=== PATIENT | female | born 1980 | race Caucasian/White ===

== ENCOUNTER 2016-07-15 15:39 | Outpatient (CLI) | payer BC ==
--- NOTE | 2016-07-15 16:53 | Non Stress Test Report ---
Non Stress Test Datetime Report Generated by CPN: 07/15/2016 16:53 DEMOGRAPHIC EGA NST: 35.0 INDICATION Indication for Study: Ordered by Provider MONITORING Monitor Explained: Monitor Explained; Test Explained; Patient Verbalized Understanding Time on Monitor: 07/15/2016 16:05 Time off Monitor: 07/15/2016 16:50 NST Duration: 45 NST INTERVENTIONS NST Interventions: PO Hydration; Other NST Interventions Other: popsicle Physician Notified NST: Dr. Dioni BABY A: [id number] BABY A Movement : Present Contraction Frequency : Ocasional FHR Baseline : 130 Accelerations : 15X15 Decelerations : None Variability : Moderate 6-25bpm NST Review: Meets Criteria for Reactive NST NST Review and Verified By : Markel Baikentrell RN NST Results: Reactive NST COMMENTS NST Comments: Provider reviewed strip. NST REPORT Report Trigger: Send Report
== END 2016-07-15 17:00 | disposition home or self-care (01) ==
LOC: LC 15:39
PROVIDERS: ATTEND Obstetrics & Gynecology
PROC: 4A1HXCZ Monitoring of Products of Conception, Cardiac Rate, External Approach (ICD-10-PCS; principal; 2016-07-15)
DX: O36.8130 Decreased fetal movements, third trimester, not applicable or unspecified (principal); Z3A.35 35 weeks gestation of pregnancy
CPT/HCPCS: 59025

== ENCOUNTER 2016-07-17 20:06 | Outpatient (CLI) | payer BC ==
[2016-07-17] MEDS ORDERED: RINGERS SOLUTION,LACTATED 1,000 ML IV PRN (20:58)
[2016-07-17 21:11] LABS: APPEARANCE,URINE SLIGHTLY-CLOUDY; BILIRUBIN,URINE NEGATIVE (NEGATIVE); GLUCOSE, URINE NEGATIVE (NEGATIVE); KETONES,URINE NEGATIVE (NEGATIVE); LEUKOCYTE ESTERASE,URINE NEGATIVE (NEGATIVE); NITRITE,URINE NEGATIVE (NEGATIVE); PROTEIN,URINE NEGATIVE (NEGATIVE); URINE SPECIFIC GRAVITY 1.011; UROBILINOGEN,URINE NEGATIVE mg/dL (<2.0)
[2016-07-17 21:24] LABS: URINE BARBITURATES SCREEN NEGATIVE; URINE METHADONE SCREEN NEGATIVE; URINE OPIATES LOW NEGATIVE; URINE PHENCYCLIDINE SCREEN NEGATIVE
[2016-07-17] MEDS ORDERED: HYDROXYZINE PAMOATE 50 MG CAPSULE PO ONE (23:10)
[2016-07-17] MEDS ORDERED: HYDROXYZINE PAMOATE 50 MG CAPSULE ONE (23:14)
--- NOTE | 2016-07-18 00:38 | Non Stress Test Report ---
Non Stress Test Datetime Report Generated by CPN: 07/18/2016 00:38 DEMOGRAPHIC Test Number: 2 EGA NST: 35.2 INDICATION Indication for Study: Ordered by Provider VITAL SIGNS Temperature - NST: 98.5 Pulse - NST: 93 RESP - NST: 15 NBPSYS NST: 151 NBPDIA NST: 66 MONITORING Monitor Explained: Monitor Explained; Test Explained; Patient Verbalized Understanding Time on Monitor: 07/17/2016 20:29 Time off Monitor: 07/18/2016 00:14 NST Duration: 225 NST INTERVENTIONS NST Interventions: PO Hydration; IV Fluids Physician Notified NST: Dr Hayward BABY A: [id number] BABY A Movement : Present Contraction Frequency : 2-3.5 FHR Baseline : 125 Accelerations : 15X15 Decelerations : None Variability : Moderate 6-25bpm NST Review: Meets Criteria for Reactive NST NST Review and Verified By : Elda Sainz RN NST Results: Reactive NST REPORT Report Trigger: Send Report
== END 2016-07-18 00:28 | disposition home or self-care (01) ==
LOC: LC 20:06
PROVIDERS: ATTEND Obstetrics & Gynecology
PROC: 4A1HXCZ Monitoring of Products of Conception, Cardiac Rate, External Approach (ICD-10-PCS; principal; 2016-07-17)
DX: O47.03 False labor before 37 completed weeks of gestation, third trimester (principal); Z3A.35 35 weeks gestation of pregnancy
CPT/HCPCS: 59025; 80307; 81001

== ENCOUNTER 2016-07-22 23:15 | Outpatient (CLI) | payer BC ==
[2016-07-23 00:02] LABS: AMORPHOUS SEDIMENT,URINE TRACE /HPF; APPEARANCE,URINE SLIGHTLY-CLOUDY; BILIRUBIN,URINE NEGATIVE (NEGATIVE); GLUCOSE, URINE >=500 mg/dL (NEGATIVE); KETONES,URINE NEGATIVE (NEGATIVE); LEUKOCYTE ESTERASE,URINE TRACE (NEGATIVE); NITRITE,URINE NEGATIVE (NEGATIVE); PROTEIN,URINE NEGATIVE (NEGATIVE); URINE SPECIFIC GRAVITY 1.018; UROBILINOGEN,URINE NEGATIVE mg/dL (<2.0)
[2016-07-23 00:13] LABS: URINE BARBITURATES SCREEN NEGATIVE; URINE METHADONE SCREEN NEGATIVE; URINE OPIATES LOW NEGATIVE; URINE PHENCYCLIDINE SCREEN NEGATIVE
--- NOTE | 2016-07-23 00:33 | Non Stress Test Report ---
Non Stress Test Datetime Report Generated by CPN: 07/23/2016 00:32 DEMOGRAPHIC EGA NST: 36.0 INDICATION Indication for Study: Decreased Movement MONITORING Monitor Explained: Monitor Explained; Test Explained; Patient Verbalized Understanding Time on Monitor: 07/22/2016 23:34 Time off Monitor: 07/23/2016 00:10 NST Duration: 36 NST INTERVENTIONS NST Interventions: PO Hydration; Reposition Patient Physician Notified NST: Dr. Soler BABY A: [id number] BABY A Movement : Present Contraction Frequency : None FHR Baseline : 120 Accelerations : 15X15 Decelerations : None Variability : Moderate 6-25bpm NST Review: Meets Criteria for Reactive NST NST Review and Verified By : PHILIPP Muniz Results: Reactive NST REPORT Report Trigger: Send Report
== END 2016-07-23 00:16 | disposition home or self-care (01) ==
LOC: LC 23:15
PROVIDERS: ATTEND Obstetrics & Gynecology
PROC: 4A1HXCZ Monitoring of Products of Conception, Cardiac Rate, External Approach (ICD-10-PCS; principal; 2016-07-22)
DX: O36.8130 Decreased fetal movements, third trimester, not applicable or unspecified (principal); Z3A.36 36 weeks gestation of pregnancy
CPT/HCPCS: 59025; 80307; 81001

== ENCOUNTER 2016-07-24 13:40 | Outpatient (CLI) | payer BC ==
[2016-07-24 14:24] LABS: AMORPHOUS SEDIMENT,URINE TRACE /HPF; APPEARANCE,URINE CLOUDY; BILIRUBIN,URINE NEGATIVE (NEGATIVE); GLUCOSE, URINE NEGATIVE (NEGATIVE); KETONES,URINE NEGATIVE (NEGATIVE); LEUKOCYTE ESTERASE,URINE MODERATE (NEGATIVE); NITRITE,URINE NEGATIVE (NEGATIVE); PROTEIN,URINE NEGATIVE (NEGATIVE); URINE SPECIFIC GRAVITY 1.016; UROBILINOGEN,URINE NEGATIVE mg/dL (<2.0)
[2016-07-24 14:42] LABS: URINE BARBITURATES SCREEN NEGATIVE; URINE METHADONE SCREEN NEGATIVE; URINE OPIATES LOW NEGATIVE; URINE PHENCYCLIDINE SCREEN NEGATIVE
== END 2016-07-24 14:56 | disposition home or self-care (01) ==
LOC: LC 13:40
PROVIDERS: ATTEND Obstetrics & Gynecology
PROC: 4A1HXCZ Monitoring of Products of Conception, Cardiac Rate, External Approach (ICD-10-PCS; principal; 2016-07-24)
DX: O40.3XX0 Polyhydramnios, third trimester, not applicable or unspecified (principal); O76 Abnormality in fetal heart rate and rhythm complicating labor and delivery; Z3A.36 36 weeks gestation of pregnancy
CPT/HCPCS: 59025; 80307; 81001

== ENCOUNTER 2016-08-01 21:08 | Emergency (ER) | payer BC ==
[2016-08-01] MEDS ORDERED: ASPIRIN 81 MG TABLET, CHEWABLE PO ONE (21:43)
[2016-08-01 22:02] LABS: ABSOLUTE BASOPHILS # (AUTO) 0.1 10^3/uL (0.0-0.2); ABSOLUTE EOSINOPHILS # (AUTO) 0.2 10^3/uL (0.0-0.6); ABSOLUTE LYMPHOCYTES (AUTO) 1.5 10^3/uL (0.5-4.7); ABSOLUTE MONOCYTES (AUTO) 1.2 10^3/uL (0.1-1.4); ABSOLUTE NEUT (AUTO) 10.5 10^3/uL (1.7-8.2); BASOPHILS % (AUTO) 1.1 % (0-2); EOSINOPHILS % (AUTO) 1.7 % (0-6); HEMATOCRIT 39.8 % (36.0-47.0); HEMOGLOBIN 13.5 g/dL (12.0-15.5); HGB HCT DIFFERENCE 0.7; LYMPHOCYTES % (AUTO) 11.1 % (13-45); MEAN CORPUSCULAR VOLUME 94 fl (80-97); MONOCYTES % (AUTO) 8.8 % (3-13); RED BLOOD COUNT 4.22 10^6/uL (3.72-5.28); RED CELL DISTRIBUTION WIDTH 13.6 % (11.5-14.0); SEGMENTED NEUTROPHILS % (AUTO) 77.3 % (42-78); WHITE BLOOD COUNT 13.5 10^3/uL (4.0-10.5)
[2016-08-01 22:16] LABS: ALANINE AMINOTRANSFERASE 37 U/L (9-52); ALBUMIN 3.1 g/dL (3.5-5.0); ALKALINE PHOSPHATASE 145 U/L (38-126); ANION GAP 7 (5-19); ASPARTATE AMINO TRANSFERASE 32 U/L (14-36); BILIRUBIN,DIRECT 0.2 mg/dL (0.0-0.4); BILIRUBIN,TOTAL 0.5 mg/dL (0.2-1.3); BLOOD UREA NITROGEN 13 mg/dL (7-20); CALCIUM 8.9 mg/dL (8.4-10.2); CARBON DIOXIDE 23 mmol/L (22-30); CHLORIDE 107 mmol/L (98-107); CREATINE KINASE 27 U/L (30-135); GLUCOSE 95 mg/dL (75-110); POTASSIUM 3.9 mmol/L (3.6-5.0); SODIUM 136.5 mmol/L (137-145)
[2016-08-01 22:27] LABS: CREATINE KINASE MB 0.46 ng/mL (<4.55)
[2016-08-01 22:28] LABS: TROPONIN I < 0.012 ng/mL
[2016-08-02 01:16] LABS: APPEARANCE,URINE CLOUDY; BILIRUBIN,URINE NEGATIVE (NEGATIVE); GLUCOSE, URINE NEGATIVE (NEGATIVE); KETONES,URINE NEGATIVE (NEGATIVE); LEUKOCYTE ESTERASE,URINE NEGATIVE (NEGATIVE); NITRITE,URINE NEGATIVE (NEGATIVE); PROTEIN,URINE NEGATIVE (NEGATIVE); UROBILINOGEN,URINE NEGATIVE mg/dL (<2.0)
--- NOTE | 2016-08-02 03:31 | ER Document Report ---
ED General - General Chief Complaint: Dizziness Stated Complaint: CHEST PAIN Time Seen by Provider: 08/02/16 00:09 TRAVEL OUTSIDE OF THE [place] IN LAST 30 DAYS: No - HPI Patient complains to provider of: Dizziness chest pain Notes: Patient is coming in for evaluation of dizziness lightheadedness and chest pain. States symptoms started around 8:00 this evening states the pain is described as burning. Patient states history of acid reflux states she took her Zantac earlier this morning has not taken any recently. Patient denies any nausea vomiting fevers or chills. Upon evaluation patient is 37 weeks no complication during . Patient states currently pain-free - Related Data Allergies/Adverse Reactions: No Known Allergies Allergy (Verified 07/24/16 14:05) Past Medical History - Social History Smoking Status: Never Smoker Frequency of alcohol use: None Drug Abuse: None Family History: Reviewed & Not Pertinent Patient has suicidal ideation: No Patient has homicidal ideation: No Renal/ Medical History: Denies: Hx Peritoneal Dialysis Surgical Hx: Negative - Immunizations Hx Diphtheria, Pertussis, Tetanus Vaccination: Yes Review of Systems - Review of Systems Constitutional: No symptoms reported EENT: No symptoms reported Cardiovascular: Chest pain, Dizziness Respiratory: No symptoms reported Gastrointestinal: No symptoms reported Genitourinary: No symptoms reported Female Genitourinary: No symptoms reported Musculoskeletal: No symptoms reported Skin: No symptoms reported Hematologic/Lymphatic: No symptoms reported Neurological/Psychological: No symptoms reported -: Yes All other systems reviewed and negative Physical Exam - Vital signs Vitals: Temp Pulse Resp BP Pulse Ox 97.7 F 86 16 128/74 H 96 08/01/16 21:27 08/01/16 21:27 08/01/16 21:27 08/01/16 21:27 08/01/16 21:27 Interpretation: Normal - General General appearance: Appears well, Alert - HEENT Head: Normocephalic, Atraumatic Eyes: Normal Pupils: PERRL - Respiratory Respiratory status: No respiratory distress Chest status: Nontender Breath sounds: Normal Chest palpation: Normal - Cardiovascular Rhythm: Regular Heart sounds: Normal auscultation Murmur: No - Abdominal Inspection: Gravid female Distension: No distension Bowel sounds: Normal Tenderness: Nontender Organomegaly: No organomegaly - Back Back: Normal, Nontender - Extremities General upper extremity: Normal inspection, Nontender, Normal color, Normal ROM , Normal temperature General lower extremity: Normal inspection, Nontender, Normal color, Normal ROM , Normal temperature, Normal weight bearing. No: Carlo's sign - Neurological Neuro grossly intact: Yes Cognition: Normal Orientation: AAOx4 [place] Coma Scale Eye Opening: Spontaneous [place] Coma Scale Verbal: Oriented [place] Coma Scale Motor: Obeys Commands Cara Coma Scale Total: 15 Speech: Normal Motor strength normal: LUE, RUE, LLE, RLE Sensory: Normal - Psychological Associated symptoms: Normal affect, Normal mood - Skin Skin Temperature: Warm Skin Moisture: Dry Skin Color: Normal Course - Re-evaluation Re-evalutation: 08/02/16 04:21 Patient is coming in for evaluation of lightheadedness dizziness chest pain described as burning. More likely is related to the patient's acid reflux of patient's troponins EKGs 2 were both negative. heart tones are within normal limits. Patient has been chest pain-free since my evaluation. Patient looks to be in no acute distress. Patient was encouraged to continue to drink plenty of fluids patient will be discharged home 08/02/16 04:23 - Vital Signs Vital signs: Temp Pulse Resp BP Pulse Ox 97.5 F 94 16 110/92 H 100 08/02/16 03:01 08/02/16 01:40 08/02/16 03:01 08/02/16 03:31 08/02/16 03:31 - Laboratory Result Diagrams: 08/01/16 21:45 08/01/16 21:45 Laboratory results interpreted by me: 08/01/16 08/01/16 21:45 21:45 WBC 13.5 H Lymphocytes % 11.1 L Absolute Neutrophils 10.5 H Sodium 136.5 L Alkaline Phosphatase 145 H Creatine Kinase 27 L Total Protein 6.0 L Albumin 3.1 L Discharge - Discharge Clinical Impression: Dizziness, Chest pain unclear etiology Qualifiers: Weeks of gestation: 37 weeks Qualified Code(s): Z3A.37 - 37 weeks gestation of Condition: Good Disposition: HOME, SELF-CARE Instructions: Dizziness ([facility]), ([facility]), Chest Pain of Unclear Cause ( [facility]) Additional Instructions: Your lab work EKG does not show any significant pathology for your chest pain. More likely this may be related to your as reflux. I would recommend to continue Zantac. Your dizziness is more likely related to possible dehydration. Would recommend to continue to drink plenty of water throughout the rest of her . Please follow-up with your primary care physician Referrals: EFRAIN EASTON MD [Primary Care Provider] - Follow up in 3-5 days
[2016-08-02 03:42] VITALS: BP 110/92
--- NOTE | 2016-08-02 10:02 | EKG REPORT ---
SEVERITY:- BORDERLINE ECG - SINUS RHYTHM LOW VOLTAGE THROUGHOUT : Confirmed by: Montana Quesada 02-Aug-2016 10:01:27
--- NOTE | 2016-08-02 10:02 | EKG REPORT ---
SEVERITY:- BORDERLINE ECG - SINUS RHYTHM LOW VOLTAGE THROUGHOUT : Confirmed by: Montana Quesada 02-Aug-2016 10:01:41
== END 2016-08-02 03:53 | disposition home or self-care (01) ==
LOC: ER 21:08
DX: O26.893 Other specified pregnancy related conditions, third trimester (principal); R42 Dizziness and giddiness; R07.9 Chest pain, unspecified; O99.613 Diseases of the digestive system complicating pregnancy, third trimester; K21.9 Gastro-esophageal reflux disease without esophagitis; Z79.899 Other long term (current) drug therapy; Z3A.37 37 weeks gestation of pregnancy
CPT/HCPCS: 36415; 80053; 81001; 82550; 82553; 84484; 85025; 93005; 93010; 99284

== ENCOUNTER 2016-08-02 20:26 | Inpatient (IN) | payer BC ==
[2016-08-02 21:16] LABS: AMNISURE (ROM) POSITIVE (NEGATIVE); APPEARANCE,URINE SLIGHTLY-CLOUDY; BILIRUBIN,URINE NEGATIVE (NEGATIVE); GLUCOSE, URINE NEGATIVE (NEGATIVE); KETONES,URINE NEGATIVE (NEGATIVE); LEUKOCYTE ESTERASE,URINE NEGATIVE (NEGATIVE); NITRITE,URINE NEGATIVE (NEGATIVE); PROTEIN,URINE NEGATIVE (NEGATIVE); URINE SPECIFIC GRAVITY 1.011; UROBILINOGEN,URINE NEGATIVE mg/dL (<2.0)
[2016-08-02 21:31] LABS: URINE BARBITURATES SCREEN NEGATIVE; URINE METHADONE SCREEN NEGATIVE; URINE OPIATES LOW NEGATIVE; URINE PHENCYCLIDINE SCREEN NEGATIVE
[2016-08-02] MEDS: RINGERS SOLUTION,LACTATED 1,000 ML IV PRN (21:54)
[2016-08-02] MEDS ORDERED: MISOPROSTOL 0.1 MG TABLET PO ONE (21:58)
[2016-08-02 22:00] LABS: ABSOLUTE BASOPHILS # (AUTO) 0.1 10^3/uL (0.0-0.2); ABSOLUTE EOSINOPHILS # (AUTO) 0.3 10^3/uL (0.0-0.6); ABSOLUTE LYMPHOCYTES (AUTO) 1.7 10^3/uL (0.5-4.7); ABSOLUTE MONOCYTES (AUTO) 1.2 10^3/uL (0.1-1.4); ABSOLUTE NEUT (AUTO) 10.4 10^3/uL (1.7-8.2); BASOPHILS % (AUTO) 0.4 % (0-2); EOSINOPHILS % (AUTO) 1.9 % (0-6); HEMOGLOBIN 12.7 g/dL (12.0-15.5); HGB HCT DIFFERENCE 1.1; LYMPHOCYTES % (AUTO) 12.2 % (13-45); MEAN CORPUSCULAR HEMOGLOBIN 32.3 pg (27.0-33.4); MEAN CORPUSCULAR HGB CONC 34.5 g/dL (32.0-36.0); MEAN CORPUSCULAR VOLUME 94 fl (80-97); MONOCYTES % (AUTO) 8.8 % (3-13); RED BLOOD COUNT 3.94 10^6/uL (3.72-5.28); RED CELL DISTRIBUTION WIDTH 13.8 % (11.5-14.0); SEGMENTED NEUTROPHILS % (AUTO) 76.7 % (42-78); WHITE BLOOD COUNT 13.6 10^3/uL (4.0-10.5)
[2016-08-02] MEDS ORDERED: MISOPROSTOL 0.1 MG TABLET ONE (22:00)
[2016-08-02] MEDS ORDERED: MISOPROSTOL 0.2 MG TABLET PV ONE (22:01)
[2016-08-03] MEDS ORDERED: ZOLPIDEM TARTRATE 5 MG TABLET PO PRN ×2 (00:07→14:15)
[2016-08-03] MEDS ORDERED: ZOLPIDEM TARTRATE 5 MG TABLET ONE (01:03)
[2016-08-03] MEDS ORDERED: OXYTOCIN/NORMAL SALINE 1,000 ML IV PRN ×2 (04:21→14:15)
[2016-08-03] MEDS ORDERED: OXYTOCIN/NORMAL SALINE 0 UNIT/0 ML RTUINJ ONE (04:27)
[2016-08-03] MEDS: RINGERS SOLUTION,LACTATED 1,000 ML IV PRN (04:31)
[2016-08-03] MEDS ORDERED: MISOPROSTOL 0.2 MG TABLET ONE ×2 (08:39→13:40)
[2016-08-03] MEDS ORDERED: FENTANYL/BUPIVACAINE/NS/PF 200 MCG/100 ML RTUINJ EPI ONE (08:39)
[2016-08-03] MEDS ORDERED: LIDOCAINE 1% INJ-PF (10 MG/ML) 30 ML SDV ONE (08:39)
[2016-08-03] MEDS ORDERED: EPHEDRINE SULFATE INJ 50 MG/1 ML AMPULE ONE (08:39)
[2016-08-03] MEDS ORDERED: BUPIVACAINE HCL 0.25 % INJ/PF (2.5 MG/1 ML) 30 ML VIAL ONE (08:40)
[2016-08-03] MEDS ORDERED: OXYTOCIN/NORMAL SALINE 20 UNIT/1,000 ML RTUINJ ONE (08:40)
[2016-08-03] MEDS ORDERED: MEASLES,MUMPS&RUBELLA VACC/PF 0.5 ML VIAL SUBCUT PRN (14:15)
[2016-08-03] MEDS ORDERED: DIBUCAINE 1% OINTMENT 28 GM TP PRN (14:15)
[2016-08-03] MEDS ORDERED: DIPH/PERTUSS(ACELL)/TETANUS VAC/PF 0.5 ML SYR (>=10YO) IM PRN (14:15)
[2016-08-03] MEDS ORDERED: BENZOCAINE/MENTHOL AEROSOL SPRAY 56 ML TOP PRN (14:15)
[2016-08-03] MEDS ORDERED: ACETAMINOPHEN WITH CODEINE #3 TABLET PO PRN (14:15)
[2016-08-03] MEDS ORDERED: MISOPROSTOL 0.2 MG TABLET PR ONE (14:35)
--- NOTE | 2016-08-03 15:34 | Delivery Summary ---
Del Sum A-C Datetime Report Generated by CPN: 08/03/2016 15:33 DELIVERY PERSONNEL DELIVERY PERSONNEL: [phone] Delivery Doctor:: Jaclyn Soler MD Nurse Industrial Truck Mechanic Certified:: Dixie Yan CNM Anesthesiologist:: Jimenez Correa MD Labor and Delivery Nurse:: Naya Thomas RNmotel operator Nurse:: Cheli Quinones RN Nursery Nurse:: Suzette Limon RN Student Observers:: Margarita Schroeder analysis intern Project Management It Specialist/PATIENT REPRESENTATIVE: Vanita Garcia CNA II Project Management It Specialist/PATIENT REPRESENTATIVE: Ioana Blanchard, DRIVER LICENSE REVIEWING OFFICER MATERNAL INFORMATION Delivery Anesthesia: Epidural Medications After Delivery: Pitocin Bolus-Please Comment; Pitocin Drip 20 Units/1000ml NSS Maternal Complications: Premature Rupture of Membranes Provider Comments: Vacuum assisted vaginal delivery, 2 pulls with pressure in the green, no pop offs by Dr. Soler. Head, shoulders, and body delivered without difficulty. Cord clamped X2, cut free, by pts . Spontaneous delivery of placenta via perla mechanism. Appears intact, 3 VC. Lacerations repaired as above, good hemostasis with external fundal massage and IV pitocin. Mother and infant in stable condition, routine pp care. LABOR SUMMARY EDC: 08/19/2016 00:00 No. Babies in Womb: 1 Attempted: No Labor Anesthesia: Epidural LABOR INFORMATION Reason for Induction: Not Applicable Onset of Labor: 08/03/2016 01:58 Complete Dilatation: 08/03/2016 11:34 Cervical Ripening Agents: Cytotec @ Oxytocin: Augmentation Group B Beta Strep: negative Antibiotics # of Doses: 0 Steroids Given: None Reason Steroids Not Administered: Not Applicable MEMBRANES Membranes Rupture Method: Spontaneous Rupture of Membranes: 08/02/2016 20:00 Length of Rupture (hr): 17.32 Amniotic Fluid Color: Clear Amniotic Fluid Amount: Moderate Amniotic Fluid Odor: None STAGES OF LABOR Stage 1 hr: 9 Stage 1 min: 36 Stage 2 hr: 1 Stage 2 min: 45 Stage 3 hr: 0 Stage 3 min: 6 Total Time in Labor hr: 11 Total Time in Labor min: 27 VAGINAL DELIVERY Episiotomy: None Laceration Extension: First Degree Laceration Type: Vaginal Other Laceration: 2nd degree right vaginal sidewall, right labial, vaginal Laceration Repair: Yes Laceration Repair Note: repaired with 2, 2-0 chromic using epidural for anesthesia Sponge Count Correct: Yes; Vaginal Sweep Performed Sharps Count Correct: Yes CSECTION DELIVERY Primary Indication: N/A Secondary Indication: N/A CSection Incidence: N/A Labor: N/A Elective: N/A CSection Incision: N/A BABY A INFORMATION Delivery Date/Time: 08/03/2016 13:19 Method of Delivery: Vaginal Born in Route : No : N/A Forceps: N/A Vacuum Extraction: Successful Shoulder Dystocia : No ASSISTED DELIVERY BABY A Indication for Assisted Delivery: poor maternal pushing effort Catheter Prior to Procedure: No Vacuum Number of Pulls: 2 Vacuum Number of PopOffs: 0 Vacuum Maximum Pressure Obtained: 75 Reduce Pressure btwn Ctx: Yes Vacuum Rad Technologist: [employer] palm pump kiwi Total Time Vacuum Applied: 3 minutes PRESENTATION/POSITION BABY A Presentation: Cephalic Cephalic Presentation: Vertex Vertex Position: Left Occipital Anterior Breech Presentation: N/A PLACENTA INFORMATION BABY A Placenta Delivery Time : 08/03/2016 13:25 Placenta Method of Delivery: Expressed Placenta Status: Delivered SCORES BABY A Heart Rate 1 min: >100 bpm Resp Effort 1 min: Good Cry Reflex Irritability 1 min: Cough or Sneeze or Pulls Away Muscle Tone 1 min: Active Motion Color 1 min: Blue/Pale Resuscitation Effort 1 min: Tactile Stimulation SCORE 1 MIN: 8 Heart Rate 5 min: >100 bpm Resp Effort 5 min: Good Cry Reflex Irritability 5 min: Cough or Sneeze or Pulls Away Muscle Tone 5 min: Active Motion Color 5 min: Blue/Pale Resuscitation Effort 5 min: N/A SCORE 5 MIN: 8 Resuscitation Effort 10 min: N/A INFORMATION BABY A Gestational Age at Delivery: 37.5 Gestational Status: Early Term- 37- 38.6 Weeks Infant Outcome : Liveborn Infant Condition : Stable Sex: Male IDENTIFICATION BABY A Infant Verification Date/Time: 08/03/2016 13:50 ID Band Number: [id number] Mother's Name Verified: Yes RN Verifying : Krishan Kline RN/ ATu Garcia WEIGHT/LENGTH BABY A Infant Birthweight (gm): 3025 Infant Weight (lb): 6 Weight (oz): 11 Length (in): 19.00 Infant Length (cm): 48.26 CORD INFORMATION BABY A No. Cord Vessels: 3 Nuchal Cord : N/A Cord Blood Taken: Yes-For Eval (Mom's Blood Type - or O+) Infant Suction: Mouth; Nose ASSESSMENT BABY A Infant Complications: Multiple Variable Decels Physical Findings at Delivery: Caput Succedaneum; Bruising Physical Findings- Other: bruising on upper back Infant Respirations: Appears Normal Skin to Skin: Yes Skin to Skin Time (min): 32 minutes Dinkey Motor Operator/ALS Called : No Transferred To: Remains with Mother BABY B INFORMATION : N/A SIGNATURES Assignment: Jaclyn Soler MD Signature: with User ID: Angelina : with User ID: [email or web address]
--- NOTE | 2016-08-03 15:54 | Admission Physical ---
Datetime Report Generated by CPN: 08/03/2016 15:54 CURRENT ADMISSION Chief Complaint: Suspected Ruptured Membranes Indication for Induction: PROM Admit Plan: Admit to Unit; Initiate Labor Induction Protocol ALLERGIES Medication Allergies: No Medication Allergies: No Known Allergies (08/02/2016) Medication Allergies: No Known Allergies (07/24/2016) Medication Allergies: No Known Allergies (07/17/2016) Medication Allergies: None Latex: No Latex Allergies Food Allergies: None Environmental Allergies: None OBSTETRICAL HISTORY EDC: 08/19/2016 00:00 : 1 Para: 0 Term: 0 : 0 SAB: 0 IAB: 0 Ectopic: 0 Livin Cesareans: 0 VBACs: 0 Multiple Births: 0 Gestational Diabetes: No Rh Sensitization: No Incompetent Cervix: No RAHEL: No Infertility: No ART Treatment: No Uterine Anomaly: No IUGR: No Hx Previous C/S: No Macrosomia: No Hx Loss/Stillborn: No PIH: No Hx : No Placenta Previa/Abruption: No Depression/PP Depression: No PTL/PROM: No Post Hemorrhage: No Current Procedures: Ultrasound; NST Obstetrical History Comments: G1 - current SEE RECORDS Alcohol: No Marijuana : No Cocaine: No Other Illicit Drugs: No Cigarettes: Never Smoker. [id number] MEDICAL HISTORY Diabetes: No Blood Transfusion: No Pulmonary Disease (Asthma, TB): No Breast Disease: No Hypertension: No Customer Specialist Surgery: No Heart Disease: No Hosp/Surgery: No Autoimmune Disorder: No Anesthetic Complications: No Kidney Disease: No Abnormal Pap Smear: No Neuro/Epilepsy: No Psychiatric Disorders: No Other Medical Diseases: Yes Hepatitis/Liver Disease: No Significant Family History: No Varicosities/Phlebitis: No Trauma/Violence : No Thyroid Dysfunction: No Medical History Comments: GERD INFECTIOUS HISTORY Gonorrhea: No Genital Herpes: No Chlamydia: No Tuberculosis: No Syphilis: No Hepatitis: No HIV/AIDS Exposure: No Rash or Viral Illness: No HPV: No PHYSICAL EXAM General: Normal HEENT: Normal Neurologic: Normal Thyroid: Normal Heart: Normal Lungs: Normal Breast: Normal Back: Normal Abdomen: Normal Genitourinary Exam: Normal Extremities: Normal DTRs: Normal Pelvic Type: Adequate Vital Signs: Reviewed VAGINAL EXAM Dilatation: 1 Effacement: 25 Station: -3 MEMBRANES Membranes: Ruptured FETUS A EGA: 37.4 Monitoring: External US FHR- Baseline: 110 Variability: Moderate 6-25bpm Accelerations: 15X15 Decelerations: None FHR Category: Category I Estimated Weight (gm): 3700 Presentation: Vertex Admit Comment: cervical ripening needed. cytotec PLANS FOR LABOR AND DELIVERY Labor and Delivery: None Pain Management: Epidural Feeding Preference: Breast Benefit of Breast Feed Discussed: Yes Circumcision: Yes INFORMED CONSENT Signature: with User ID: [email or web address]
[2016-08-03] MEDS: ACETAMINOPHEN WITH CODEINE #3 TABLET PO PRN ×2 (16:46→22:24)
[2016-08-03] MEDS: DOCUSATE SODIUM 100 MG CAPSULE PO SCH (17:41)
[2016-08-03] MEDS: FERROUS SULFATE 325 MG TABLET PO SCH (17:42)
[2016-08-03] MEDS: IBUPROFEN 800 MG TABLET PO SCH (21:20)
[2016-08-04] MEDS: IBUPROFEN 800 MG TABLET PO SCH ×3 (06:06→21:34)
[2016-08-04 06:46] LABS: HEMATOCRIT 35.5 % (36.0-47.0); HEMOGLOBIN 12.3 g/dL (12.0-15.5); HGB HCT DIFFERENCE 1.4; MEAN CORPUSCULAR HGB CONC 34.6 g/dL (32.0-36.0); MEAN CORPUSCULAR VOLUME 92 fl (80-97); RED BLOOD COUNT 3.84 10^6/uL (3.72-5.28); RED CELL DISTRIBUTION WIDTH 13.8 % (11.5-14.0); WHITE BLOOD COUNT 17.4 10^3/uL (4.0-10.5)
--- NOTE | 2016-08-04 08:39 | PDOC PROGRESS REPORT ---
Subjective-OB Subjective: Post Delivery Day: 1 35 year old. Denies any needs at this time, states lochia is stable, pain is well controlled, voiding without difficulty, tolerating diet. Physical Exam (OB) Vital Signs: Temp Pulse Resp BP Pulse Ox 98.2 F 95 16 101/70 98 08/03/16 20:28 08/03/16 20:28 08/03/16 20:28 08/03/16 20:28 08/03/16 20:28 Intake & Output 08/03/16 08/04/16 08/05/16 06:59 06:59 06:59 Weight 88.65 kg - Lochia Lochia Amount: Small 10-25 ml Lochia Color: Rubra/Red - Abdomen Description: Soft, Round Hernia Present: No Fundal Description: Firm, Midline Fundal Height: u/u - u/2 Objective-Diagnostic Laboratory: 08/04/16 06:14 08/04/16 06:14 WBC 17.4 H RBC 3.84 Hgb 12.3 Hct 35.5 L MCV 92 MCH 32.0 MCHC 34.6 RDW 13.8 Plt Count 205 Assessment and Plan(PN) - Assessment and Plan (1) Vaginal delivery Is this a current diagnosis for this admission?: YesPlan: routine pp care - Time Spent with Patient Time with patient: Less than 15 minutes Critical Time spent with patient: Less than 15 minutes Medications reviewed and adjusted accordingly: Yes - Disposition Anticipated Discharge: Home Within: within 24 hours
[2016-08-04] MEDS: DOCUSATE SODIUM 100 MG CAPSULE PO SCH ×2 (10:18→17:05)
[2016-08-04] MEDS: PRENATAL VITAMIN W-O CA NO5/FE FUMARATE/FA CAPSULE PO SCH (10:18)
[2016-08-04] MEDS: SENNOSIDES/DOCUSATE 8.6-50 MG 1 EACH TABLET PO SCH (10:19)
[2016-08-04] MEDS: FERROUS SULFATE 325 MG TABLET PO SCH ×2 (10:19→17:05)
[2016-08-04] MEDS: ACETAMINOPHEN WITH CODEINE #3 TABLET PO PRN ×2 (17:05→20:56)
[2016-08-05] MEDS: IBUPROFEN 800 MG TABLET PO SCH ×2 (05:00→13:31)
[2016-08-05] MEDS: ACETAMINOPHEN WITH CODEINE #3 TABLET PO PRN ×2 (07:06→17:25)
[2016-08-05 08:23] VITALS: BP 109/59
--- NOTE | 2016-08-05 08:23 | PDOC DISCHARGE SUMMARY ---
Final Diagnosis Discharge Date: 08/05/16 - Final Diagnosis (1) Vaginal delivery Is this a current diagnosis for this admission?: Yes Discharge Data - Discharge Medication Home Medications: Vit/Iron Fumarate/FA [ Tablet] 1 tab PO DAILY 07/15/16 Ranitidine HCl [Zantac 150 mg Tablet] 75 mg PO DAILY 07/15/16 Acetaminophen with Codeine [Tylenol #3 Tablet] 2 each PO Q4HP PRN #10 tablet 06/18 Docusate Sodium [Colace 100 mg Capsule] 100 mg PO BID #60 capsule 08/05/16 Ibuprofen [Motrin 800 mg Tablet] 800 mg PO Q8 #60 tablet 08/05/16 Gestational Age: 37.5 Reason(s) for Admission: PROM Procedures: NST Intrapartum Procedure(s): Vacuum Extraction Complication(s): Laceration-Vaginal, Laceration-Labial Laceration-Degree: 2nd - [place] Data Baby 1 Male at 1 minute: 8 at 5 minutes: 8 Weight: 3025 kg Home with Mother: Yes Complications: No - Diagnosis Test Laboratory: Temp Pulse Resp BP Pulse Ox 97.9 F 89 18 120/77 99 08/04/16 19:42 08/04/16 19:42 08/04/16 19:42 08/04/16 19:42 08/04/16 19:42 08/02/16 08/02/16 08/04/16 20:44 21:46 06:14 RBC 3.94 3.84 Hgb 12.7 12.3 Hct 37.0 35.5 L Urine Opiates Screen NEGATIVE - Discharge information/Instructions Discharge Activity: Activity As Tolerated, No Driving, Pelvic Rest, No tub bath Discharge Diet: Regular Disposition: HOME, SELF-CARE Follow [facility] with: [facility] in: 4, Weeks
[2016-08-05] MEDS: PRENATAL VITAMIN W-O CA NO5/FE FUMARATE/FA CAPSULE PO SCH (09:49)
[2016-08-05] MEDS: DOCUSATE SODIUM 100 MG CAPSULE PO SCH ×2 (09:49→17:25)
[2016-08-05] MEDS: FERROUS SULFATE 325 MG TABLET PO SCH ×2 (09:49→17:25)
[2016-08-05] MEDS: SENNOSIDES/DOCUSATE 8.6-50 MG 1 EACH TABLET PO SCH (09:49)
== END 2016-08-05 18:10 | disposition home or self-care (01) | DRG 775 ==
LOC: LC 20:26 → LR 21:26 → 2S 08-03 15:45
PROVIDERS: ADMIT Obstetrics & Gynecology; ATTEND Obstetrics & Gynecology
PROC: 10D07Z6 Extraction of Products of Conception, Vacuum, Via Natural or Artificial Opening (ICD-10-PCS; principal; 2016-08-03)
PROC: 0KQM0ZZ Repair Perineum Muscle, Open Approach (ICD-10-PCS; 2016-08-03)
PROC: 0HQ9XZZ Repair Perineum Skin, External Approach (ICD-10-PCS; 2016-08-03)
DX: O42.02 Full-term premature rupture of membranes, onset of labor within 24 hours of rupture (principal); O71.4 Obstetric high vaginal laceration alone; O36.0930 Maternal care for other rhesus isoimmunization, third trimester, not applicable or unspecified; O70.0 First degree perineal laceration during delivery; O76 Abnormality in fetal heart rate and rhythm complicating labor and delivery; Z3A.37 37 weeks gestation of pregnancy; Z37.0 Single live birth
CPT/HCPCS: 36415; 80307; 81005; 84112; 85025; 85027; 86592; 86850; 86870; 86900; 86901; J2590; J3490